=== PATIENT | female | born 1980 | race Caucasian/White ===

== ENCOUNTER 2024-05-18 06:40 | Emergency (ER) | payer OTHER, SELFPAY ==
[2024-05-18 06:44] VITALS: BP 180/120
[2024-05-18 07:42] VITALS: BMI 22.4
--- NOTE | 2024-05-18 08:01 | ED.GENMED ---
History of Present Illness
General
Chief Complaint: Back Pain
Source: patient
Time Seen by Provider: 05/18/24 07:13
History of Present Illness
History of Present Illness:
43-year-old female presents to the emergency room complaining of pain in her right arm. 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 Pain seems to radiate down the arm and she feels a sense of numbness in the right arm. Patient has
a history of breast cancer for which she had bilateral mastectomies, chemo and radiation. She had positive lymph nodes at that time. Patient states she has not followed up with her oncologist since COVID. Patient is right-hand dominant.
Phy Exam
Physical Exam
Physical Exam:
General: Awake, Alert, Oriented X3. Appears uncomfortable
Vitals: unremarkable
Head: Atraumatic
Eyes: Pupils equal, EOMI
Throat: Airway intact, no exudates
Neck: Trachea midline, no midline tenderness to palpation
Lungs: Clear and equal b/l
Heart: Regular rate, no murmurs
Abd: Soft, Nontender, No pulsatile mass
Neuro: Cranial nerves intact, muscle strength equal bilaterally
Skin: Warm, dry, no rash
Extremities: pulses equal b/l, no edema
Course
Orders/Labs/Results
Orders:
Orders
05/18/24 08:00
CT Cervical Spine W/o Iv Contr Urgent
Comment:
Reason For Exam: right arm radiculopathy, hx of breast ca ? met
Ketorolac [Toradol] 15 mg IV NOW STA
Shoulder, Right 2 Views [CR Shoulder - Right Min 2 View] Urgent
Comment:
Reason For Exam: shoulder pain hx breast ca
05/18/24 08:44
Prednisone [Deltasone] 50 mg PO NOW STA
Vital Signs
Initial and Last Documented VS:
Initial Vital Signs
Temp Pulse Resp BP Pulse Ox
98.0 F 68 16 180/120 100
05/18/24 06:44 05/18/24 06:44 05/18/24 06:44 05/18/24 06:44 05/18/24 06:44
Last Documented Vital Signs
Temp Pulse Resp BP Pulse Ox
98.5 F 67 17 159/107 98
05/18/24 10:56 05/18/24 10:56 05/18/24 10:56 05/18/24 10:56 05/18/24 08:51
MDM/Problems Addressed
Differential Diagnosis Includes:
Herniated disc, bony metastases, shoulder strain
MDM/Problems Addressed:
CT of the cervical spine obtained given concern for metastatic disease. Fortunately there is no evidence for metastatic disease on CT. CT does show changes suggestive of degenerative disc disease. Patient feeling better after treatment here.
Stable for discharge home and outpatient follow-up.
*Radiology
Radiology exam reviewed: radiology read reviewed
*Pulse Oximetry
Patient hypoxic: no
*Critical Care Note
Total Time (30-74mins, 75-104mins- exclusive of procedures): Not Applicable
ED Attending Note
-
Portions of this chart may have been created with voice recognition software.� Occasional wrong word or��sound alike� substitutions may have occurred due to the inherent limitations of voice recognition software.
Discharge Plan
Departure
Patient Disposition: Home (Routine Discharge)
Date of Disposition: 05/18/24
Time of Disposition: 10:46
Patient with high blood pressure during this ER visit?: Yes
Condition: Good
Discharge Problem:
Cervical radiculopathy
Instructions: Radiculopathy (DC)
Prescriptions:
New
prednisone 20 mg tablet
40 mg PO DAILY Qty: 8 0RF
gabapentin 300 mg capsule
300 mg PO TID PRN (Reason: neck/arm pain) Qty: 30 0RF
No Action
oxycodone-acetaminophen 5-325 mg Tablet
1 tab PO Q4H PRN (Reason: pain)
bupropion HCl [Wellbutrin XL] 150 mg Tablet Extended Release 24 Hr
150 mg PO DAILY
Referrals:
Wallace Rodriguez MD [Family Provider] -
Tomer Acevedo MD [Active] -
Activity Restrictions/Additional Instructions:
Based upon your symptoms and CT of the neck it appears you have a cervical disc that is causing pressure on the nerves going to your right arm. You should follow up with your primary care provider and I have also given you contact information for
our pain specialists who can help manage this as well.
Interventions
Interventions:
*Risk Screen - Suicide Last Done: 05/18/24 06:44
*General Assessment Last Done: 05/18/24 06:44
*Neglect/Abuse Screening Last Done: 05/18/24 06:44
ED- Fall Risk Assessment Last Done: 05/18/24 06:44
*ED COVID-19 Vaccine History Last Done: 05/18/24 06:44
*Nursing Disposition Last Done: 05/18/24 10:56
ED-Musculoskeletal Assessment Last Done: 05/18/24 07:42
Discharge Date and Time
Discharge Date/Time: 05/18/24 10:57
Print Language: DANISH
[2024-05-18] MEDS: TORADOL 15 MG IV (08:43)
[2024-05-18] MEDS: DELTASONE 50 MG PO (08:48)
[2024-05-18 08:51] VITALS: BP 152/106
[2024-05-18 10:56] VITALS: BP 159/107
== END 2024-05-18 10:57 | disposition home or self-care (01) ==
LOC: EMR 06:40
PROVIDERS: EMERGENCY PHYSICIAN Emergency Medicine; FAMILY PHYSICIAN Family Medicine
DX: M54.12 Radiculopathy, cervical region (principal)
CPT/HCPCS: 99284; 96374; 72125; 73030

== ENCOUNTER → 2024-06-04 06:24 | Day surgery (SDC) | payer OTHER, SELFPAY | LOC: GI 06:24 | PROVIDERS: ATTENDING PHYSICIAN Internal Medicine Gastroenterology; FAMILY PHYSICIAN Family Medicine | DX: Z12.11 Encounter for screening for malignant neoplasm of colon (principal); Z83.719 Family history of colon polyps, unspecified; K57.30 Diverticulosis of large intestine without perforation or abscess without bleeding | CPT/HCPCS: G0105 ==